=== PATIENT | male | born 1990 | race Caucasian/White ===

== ENCOUNTER 2016-12-17 20:08 | Emergency (ER) | payer MEDICAID ==
[2016-12-17] MEDS ORDERED: KETOROLAC 30 MG/1 ML SDV IVP ONE (20:36)
[2016-12-17] MEDS ORDERED: HYDROmorphONE/DILAUDID 1 MG/ML SYR IVP ONE (20:36)
[2016-12-17] MEDS ORDERED: ONDANSETRON 4 MG/2 ML VIAL IVP ONE ×2 (20:36→22:21)
[2016-12-17] MEDS ORDERED: NS 1,000 ML IV ONE ×2 (20:36)
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
[2016-12-17] MEDS ORDERED: IOPAMIDOL (ISOVUE-300) 100 ML BTL ONE (21:00)
[2016-12-17 21:05] LABS: % IMMATURE GRANULYOCYTES 0.4 % (0.0-1.1); ABSOLUTE IMMATURE GRANULOCYTES 0.03 10^3/uL (0.00-0.10); ADD DIFF? NO; ADD MORPH? NO; ADD SCAN? NO; ATYPICAL LYMPHOCYTE FLAG 20 (0-99); FRAGMENT RBC FLAG 0 (0-99); HEMATOCRIT 44.4 % (40.0-51.0); HEMOGLOBIN 15.3 g/dL (13.7-17.5); LEFT SHIFT FLG 0 (0-99); LIPEMIA HEMOLYSIS FLAG 90 (0-99); MEAN CELL HEMOGLOBIN 31.2 pg (27.9-34.1); MEAN CELL HEMOGLOBIN CONCENTR. 34.5 g/dL (32.4-36.7); MEAN CELL VOLUME 90.6 fL (81.5-99.8); MEAN PLATELET VOLUME 9.8 fL (8.7-11.7); PLATELET CLUMPS FLAG 20 (0-99); PLATELET COUNT 267 10^3/uL (150-400); RED CELL DISTRIBUTION WIDTH 13.5 % (11.5-15.2)
[2016-12-17 21:12] LABS: ALANINE AMINOTRANSFERASE 26 IU/L (21-72); ALBUMIN 4.4 g/dL (3.5-5.0); ALKALINE PHOSPHATASE 59 IU/L (38-126); ANION GAP 12 mEq/L (8-16); ASPARTATE AMINOTRANSFERASE 21 IU/L (17-59); BILIRUBIN,TOTAL 0.6 mg/dL (0.1-1.4); BILIRUBIN-CONJUGATED 0.5 mg/dL (0.0-0.5); BILIRUBIN-UNCONJUGATED 0.1 mg/dL (0.0-1.1); CALCIUM 10.1 mg/dL (8.5-10.4); CARBON DIOXIDE 20 mEq/l (22-31); CHLORIDE 105 mEq/L (97-110); CREATININE 0.9 mg/dL (0.7-1.3); GLOMERULAR FILTRATION RATE > 60; GLUCOSE 87 mg/dL (70-100); SODIUM 137 mEq/L (134-144); TOTAL PROTEIN 7.6 g/dL (6.3-8.2)
[2016-12-17] MEDS ORDERED: ONDANSETRON 4MG PREPACK#2 BTL TAKEHOME ONE (22:21)
[2016-12-17] MEDS ORDERED: HYOSCYAMINE SULFATE 0.125 MG TAB ONE (22:30)
[2016-12-17] MEDS ORDERED: FAMOTIDINE 20 MG TAB ONE (22:30)
[2016-12-17] MEDS ORDERED: MAG HYDROX/AL HYDROX/SIMETH 30 ML UDCUP ONE (22:30)
[2016-12-17] MEDS ORDERED: LIDOCAINE 2% VISCOUS 15 ML UDCUP ONE (22:31)
[2016-12-17] MEDS ORDERED: LIDOCAINE 2% VISCOUS 15 ML UDCUP PO ONE (22:34)
[2016-12-17] MEDS ORDERED: MAG HYDROX/AL HYDROX/SIMETH 30 ML UDCUP PO ONE (22:34)
[2016-12-17] MEDS ORDERED: FAMOTIDINE 20 MG TAB PO ONE (22:35)
[2016-12-17] MEDS ORDERED: HYOSCYAMINE SULFATE 0.125 MG TAB PO ONE (22:35)
[2016-12-17 22:39] VITALS: O2SAT 96
[2016-12-17 22:53] VITALS: BP 140/91; PULSE 78; RESP 16; TEMP 97.9
== END 2016-12-17 22:53 | disposition home or self-care (01) ==
DX: R10.84 Generalized abdominal pain (principal); R19.7 Diarrhea, unspecified; E86.9 Volume depletion, unspecified; F17.200 Nicotine dependence, unspecified, uncomplicated
CPT/HCPCS: 96374; J1170; J1885; J2405; Q9967